=== PATIENT | male | born 1990 | race Caucasian/White ===

== ENCOUNTER → 2022-06-29 | Outpatient (CLI) | payer BC ==
--- NOTE | 2022-06-29 13:21 | CT ---
EXAMINATION TYPE: CT shoulder LT wo con DATE OF EXAM: 06/29/2022 COMPARISON: None HISTORY: Pain from shoulder to elbow, golf cart fell on pt CT DLP: [id number] mGycm Automated exposure control for dose reduction was used. FINDINGS: Osseous structures intact. Joint space is clear. No acute fracture or dislocation. Visualized lung danielson are clear. Correlate for curvature of the spine and scoliosis. IMPRESSION: NO ACUTE FRACTURE IDENTIFIED. IF THERE IS CONCERN FOR SOFT TISSUE OR ROTATOR CUFF INJURY [facility]RELATE [facility]
== END | disposition home or self-care (01) ==
LOC: RADCTMAIN 12:38
PROVIDERS: ATTEND Family Medicine
DX: S49.92XA Unspecified injury of left shoulder and upper arm, initial encounter (principal)